=== PATIENT | female | born 1995 | race Caucasian/White ===

== ENCOUNTER 2018-02-04 01:06 | Inpatient (IN) | payer OTHER ==
[~2018-02-04] VITALS: Ht 165.1 cm; Wt 108.2 kg
[~2018-02-04 01:06] MED LIST: ACET-1600 PO; DOCU-131 PO; DOXY100T PO; FAMO-79 PO; GARL10002 PO; LORA-445 PO; ONDA4TAB10 PO; OXYC15TA PO; OXYC5TAB3 PO; SERT50TA5 PO; TOPI50TA8 PO; WARF7.5T PO-COUM
[2018-02-04] MEDS ORDERED: SODIUM CHLORIDE 0.9% 1,000ML IVBOLUS ONE ×2 (01:30→02:30)
[2018-02-04] MEDS ORDERED: SODIUM CHLORIDE FLUSH 10ML SYR IVF ONE (01:30)
[2018-02-04] MEDS ORDERED: ALBUTEROL/IPRATROPIUM 2.5MG/0.5MG, 3 ML ONE ×2 (01:42)
[2018-02-04] MEDS: ALBUTEROL/IPRATROPIUM 2.5MG/0.5MG, 3 ML NPPB SCH ×2 (01:46→01:47)
[2018-02-04 02:10] LABS: BASOPHILS # (AUTO) 0.04 x10^3/uL (0-0.1); BASOPHILS % (AUTO) 1 % (0-1); EOSINOPHILS # (AUTO) 0.16 x10^3/uL (0-0.4); EOSINOPHILS % (AUTO) 3 % (1-7); LYMPHOCYTES # (AUTO) 1.56 x10^3/uL (1-3.4); LYMPHOCYTES % (AUTO) 24 % (22-44); MD NO; MEAN CORPUSCULAR HEMOGLOBIN 28.3 pg (27.0-34.8); MEAN CORPUSCULAR HGB CONC 33.1 g/dL (32.4-35.8); MEAN CORPUSCULAR VOLUME 85.6 fL (80-100); MEAN PLATELET VOLUME 7.5 fL (7.4-10.4); MONOCYTES % (AUTO) 8 % (2-9); NEUTROPHILS # (AUTO) 4.26 x10^3/uL (1.8-6.8); NEUTROPHILS % (AUTO) 65 % (42-75); PLATELET COUNT 287 x10^3/uL (130-400); RED BLOOD COUNT 4.22 x10^6/uL (3.82-5.3); RED CELL DISTRIBUTION WIDTH 14.1 % (9.6-15.2)
[2018-02-04 02:18] LABS: ALBUMIN 3.1 g/dL (3.4-5.0); ANION GAP 7 mmol/L (5-15); CALCIUM 8.7 mg/dL (8.5-10.1); CHLORIDE 107 mmol/L (98-107); CREATININE 0.89 mg/dL (0.55-1.02)
[2018-02-04] MEDS ORDERED: AZITHROMYCIN 500 MG in SODIUM CHLORIDE 0.9% 250 ML IVPB ONE (02:30)
[2018-02-04] MEDS ORDERED: CEFTRIAXONE PMX 1GM/50ML 50 ML IVPB ONE (02:30)
[2018-02-04] MEDS ORDERED: SODIUM CHLORIDE FLUSH 10ML SYR IVF PRN (03:00)
[2018-02-04] MEDS ORDERED: CEFTRIAXONE PMX 1GM/50ML 50 ML ONE (03:03)
[2018-02-04] MEDS ORDERED: morphine SULFATE 10 MG/ML, 1ML IVPush PRN (03:30)
[2018-02-04] MEDS ORDERED: hydrALAzine 20 MG/ML, 1ML IVPush PRN (03:30)
[2018-02-04] MEDS ORDERED: DOCUSATE 100 MG CAPSULE PO PRN (03:30)
[2018-02-04] MEDS ORDERED: BISACODYL 10 MG SUPP PR PRN (03:30)
[2018-02-04] MEDS ORDERED: ONDANSETRON 2MG/ML, 2ML IVPush PRN (03:30)
[2018-02-04] MEDS ORDERED: POLYETHYLENE GLYCOL 17 GM PACKET PO PRN (03:30)
[2018-02-04] MEDS ORDERED: OXYcodone/APAP 5/325MG TABLET PO PRN (03:30)
[2018-02-04 03:40] VITALS: BP 117/68
[2018-02-04 03:56] VITALS: BP 117/68
[2018-02-04] MEDS ORDERED: CEFTRIAXONE PMX 2GM/50ML 50 ML IV SCH (04:00)
[2018-02-04 04:04] LABS: FREE T4 (FREE THYROXINE) 1.1 ng/dL (0.76-1.46); THYROID STIMULATING HORMONE 0.919 mIU/L (0.358-3.740)
[2018-02-04 04:20] LABS: HEMOGLOBIN A1C 5.4 % (4.2-6.3)
[2018-02-04] MEDS: GUAIFENESIN/DM 200-20MG, 10ML UDC PO PRN ×3 (04:38→20:47)
[2018-02-04] MEDS: SODIUM CHLORIDE 0.9% 1,000 ML IV SCH ×2 (04:38→15:00)
[2018-02-04] MEDS: HEPARIN 5,000 UNITS/ML, 1ML SQ SCH ×3 (05:05→20:47)
[2018-02-04 05:42] LABS: RAPID INFLUENZA A Negative (Negative); RAPID INFLUENZA B Negative (Negative)
[2018-02-04] MEDS: LORazepam 0.5MG TABLET PO SCH ×4 (06:58→20:47)
[2018-02-04 08:15] VITALS: BP 105/69
[2018-02-04] MEDS: ACETAMINOPHEN 325 MG TABLET PO PRN ×2 (08:41→20:47)
[2018-02-04] MEDS: SERTRALINE 50MG TABLET PO SCH (08:41)
[2018-02-04 09:03] LABS: MICROSCOPIC AUTO
[2018-02-04 09:07] LABS: CULTURE INDICATED? NO
[2018-02-04 12:45] VITALS: BP 108/70
[2018-02-04 20:30] VITALS: BP 127/74
[2018-02-05] MEDS ORDERED: AZITHROMYCIN 500 MG in SODIUM CHLORIDE 0.9% 250 ML IV SCH (01:00)
[2018-02-05 03:26] VITALS: BP 113/75
[2018-02-05] MEDS: GUAIFENESIN/DM 200-20MG, 10ML UDC PO PRN ×2 (03:41→09:35)
[2018-02-05 05:36] LABS: BASOPHILS # (AUTO) 0.04 x10^3/uL (0-0.1); BASOPHILS % (AUTO) 1 % (0-1); EOSINOPHILS # (AUTO) 0.15 x10^3/uL (0-0.4); EOSINOPHILS % (AUTO) 4 % (1-7); LYMPHOCYTES # (AUTO) 1.43 x10^3/uL (1-3.4); LYMPHOCYTES % (AUTO) 37 % (22-44); MD NO; MEAN CORPUSCULAR HEMOGLOBIN 28.8 pg (27.0-34.8); MEAN CORPUSCULAR HGB CONC 33.6 g/dL (32.4-35.8); MEAN PLATELET VOLUME 7.5 fL (7.4-10.4); MONOCYTES % (AUTO) 10 % (2-9); NEUTROPHILS # (AUTO) 1.83 x10^3/uL (1.8-6.8); NEUTROPHILS % (AUTO) 48 % (42-75); PLATELET COUNT 248 x10^3/uL (130-400); RED BLOOD COUNT 3.62 x10^6/uL (3.82-5.3); RED CELL DISTRIBUTION WIDTH 14.4 % (9.6-15.2)
[2018-02-05 05:45] LABS: CHLORIDE 111 mmol/L (98-107)
[2018-02-05 05:57] LABS: ALANINE AMINOTRANSFERASE 14 U/L (12-78); ALBUMIN 2.5 g/dL (3.4-5.0); ALKALINE PHOSPHATASE 44 U/L (45-117); ANION GAP 6 mmol/L (5-15); BILIRUBIN,TOTAL 0.4 mg/dL (0.2-1.0); CALCIUM 8.3 mg/dL (8.5-10.1); CHOLESTEROL, TOTAL 117 mg/dL (140-239); CREATININE 0.75 mg/dL (0.55-1.02); HDL CHOL % 25 % (28-40); HDL CHOLESTEROL (DIRECT) 29 mg/dL (40-60); LDL CHOLESTEROL,CALCULATED 64 mg/dL (54-169); LDL/HDL RATIO 2.2 (0.5-3.0); TOTAL PROTEIN 6.5 g/dL (6.4-8.2); TRIGLYCERIDES 119 mg/dL (50-200); VLDL CHOLESTEROL 24 mg/dL (0-25)
[2018-02-05] MEDS: HEPARIN 5,000 UNITS/ML, 1ML SQ SCH (07:28)
[2018-02-05 08:01] VITALS: BP 106/67
[2018-02-05] MEDS: LORazepam 0.5MG TABLET PO SCH (09:00)
[2018-02-05] MEDS: SERTRALINE 50MG TABLET PO SCH (09:36)
[2018-02-05] MEDS ORDERED: CEFD300C37 PO (10:27)
[2018-02-05] MEDS ORDERED: AZIT500T5 PO (10:27)
[2018-02-05] MEDS ORDERED: GUAI5SYR PO (10:31)
== END 2018-02-05 12:36 | disposition home or self-care (01) | DRG 871 ==
LOC: ED 02:59 → EDIP 03:26 → 4NOR 03:40 → DCLOUNGE 02-05 12:21
PROVIDERS: ADMIT Internal Medicine; ATTEND Internal Medicine
DX: A41.9 Sepsis, unspecified organism (principal); J15.9 Unspecified bacterial pneumonia; E44.0 Moderate protein-calorie malnutrition; B34.9 Viral infection, unspecified; F41.9 Anxiety disorder, unspecified; G89.29 Other chronic pain; R09.02 Hypoxemia; Z86.73 Personal history of transient ischemic attack (TIA), and cerebral infarction without residual deficits; Z88.8 Allergy status to other drugs, medicaments and biological substances
CPT/HCPCS: 36415; 71046; 80048; 80053; 80061; 81001; 82040; 83036; 83605; 83735; 84145; 84439; 84443; 84703; 85025; 87040; 87070; 87205; 87400; 93005; 94640; 96365; J0456; J0696; J1644; J7620; J7030; J7050